=== PATIENT | female | born 1950 | race Caucasian/White ===

== ENCOUNTER 2019-08-23 10:01 | Outpatient (CLI) | payer MEDICARE, SELFPAY ==
[2019-08-23 10:18] LABS: Appearance Urine Clear (Clear); Bilirubin Urine Negative (Negative); Color Urine Yellow (Yellow); Glucose Urine UA Negative (Negative); Ketones Urine Negative (Negative); Leukocyte Esterase Ur 1+ (Negative); Nitrate Urine Negative (Negative); Protein Urine Negative (Negative); Specific Grav Ur <= 1.005 (1.010-1.020); Urobilinogen Urine 0.2 mg/dL (0.2-1.0); pH Urine 6.5 (5.0-8.0)
[2019-08-23 10:27] LABS: Add Urine Microscopic? YES; Bacteria Urine 2+ /hpf; Blood Urine Trace-Intact (Negative); RBC Urine 0-2 /hpf (0-2); Squamous Epithelial Cell Urine Few /hpf (Few); WBC Urine 16-20 /hpf (0-3)
== END 2019-08-23 10:02 | disposition home or self-care (01) ==
LOC: CHSLAB 10:04
PROVIDERS: PCP Internal Medicine; Visit Provider Internal Medicine
DX: R31.9 Hematuria, unspecified (principal)
CPT/HCPCS: 81001; 88108; 88175; G0145

== ENCOUNTER 2019-08-29 10:37 | Outpatient (CLI) | payer MEDICARE, SELFPAY ==
--- NOTE | ~2019-08-29 | MM_ITS ---
EXAMINATION: MM screening kassandra BI w [place] HISTORY: Screening mammogram TECHNIQUE: Craniocaudal and mediolateral oblique 3-D tomosynthesis images were obtained and synthetic 2-D images were generated. CAD analysis was submitted and interpreted. COMPARISON: 05/19/2018 bilateral digital screening mammogram 05/25/2016 diagnostic mammogram 05/07/2016 bilateral digital screening mammogram BREAST PARENCHYMAL COMPOSITION: The breasts are heterogeneously dense, which may obscure small masses . FINDINGS: There is a biopsy marker on the left; history of prior benign left breast biopsy. Occasiona l bilateral benign calcifications are noted. There is no evidence of suspicious mass, calcification, or architectural distortion to suggest malignancy in either breast. There has been no suspicious inte rval change. IMPRESSION: 1. No mammographic evidence of malignancy. 2. Recommend routine screening mammography in one year. BI-RADS Category 2: Benign finding(s). Reviewed, dictated and finalized at location A. PERSON
== END 2019-08-29 10:38 | disposition home or self-care (01) ==
LOC: CHSIMG 10:45
PROVIDERS: PCP Internal Medicine; Visit Provider Internal Medicine
DX: Z12.31 Encounter for screening mammogram for malignant neoplasm of breast (principal)
CPT/HCPCS: 77063; 77067

== ENCOUNTER 2019-08-30 09:59 | Outpatient (CLI) | payer MEDICARE, SELFPAY ==
[2019-08-30 10:11] LABS: Appearance Urine Clear (Clear); Bilirubin Urine Negative (Negative); Color Urine Yellow (Yellow); Glucose Urine UA Negative (Negative); Ketones Urine Negative (Negative); Leukocyte Esterase Ur Negative (Negative); Nitrate Urine Negative (Negative); Protein Urine Negative (Negative); Specific Grav Ur >= 1.030 (1.010-1.020); Urobilinogen Urine 0.2 mg/dL (0.2-1.0)
[2019-08-30 10:15] LABS: Add Urine Microscopic? YES; Blood Urine Trace-Intact (Negative); RBC Urine 0-2 /hpf (0-2); Squamous Epithelial Cell Urine Moderate /hpf (Few); WBC Urine 0-3 /hpf (0-3)
[2019-08-30 10:16] LABS: Bacteria Urine 1+ /hpf
== END 2019-08-30 10:00 | disposition home or self-care (01) ==
LOC: CHSLAB 10:01
PROVIDERS: PCP Internal Medicine; Visit Provider Internal Medicine
DX: N39.0 Urinary tract infection, site not specified (principal)
CPT/HCPCS: 81001; 87086; 87088

== ENCOUNTER 2020-02-23 11:06 | Outpatient (CLI) | payer MEDICARE, SELFPAY ==
[2020-02-23 11:24] LABS: Appearance Urine Clear (Clear); Bilirubin Urine Negative (Negative); Color Urine Yellow (Yellow); Glucose Urine UA Negative (Negative); Ketones Urine Negative (Negative); Leukocyte Esterase Ur Trace (Negative); Nitrate Urine Negative (Negative); Protein Urine Negative (Negative); Specific Grav Ur >= 1.030 (1.010-1.020); Urobilinogen Urine 0.2 mg/dL (0.2-1.0); pH Urine 5.5 (5.0-8.0)
[2020-02-23 11:28] LABS: Add Urine Microscopic? YES; Bacteria Urine 1+ /hpf; Blood Urine Trace-Intact (Negative); RBC Urine 0-2 /hpf (0-2); Transitional Epi Cells Urine Moderate /hpf
[2020-02-23 12:18] LABS: Hemoglobin A1C 6.1 % (<5.7)
[2020-02-23 12:25] LABS: Alanine Aminotransferase 17 U/L (14-59); Albumin Level 3.6 g/dL (3.4-5.0); Alkaline Phosphatase 86 U/L (46-116); Anion Gap 14.3 mmol/L (7-16); Aspartate Amino Transferase 18 U/L (15-37); Bilirubin,Total 0.6 mg/dL (0.00-1.00); Blood Urea Nitrogen 14 mg/dL (7-18); Calcium 9.4 mg/dL (8.5-10.1); Carbon Dioxide 27 mmol/L (21-32); Chloride 105 mmol/L (98-108); Cholesterol 181 mg/dL (0-200); Estimated Glomerular Filt Rate 49; Glucose 117 mg/dL (70-99); HDL Direct 56 mg/dL (40-60); LDL Cholesterol Calculated 99 mg/dL (<130); Osmolality Calculated 295 mOsm/kg (285-295); Potassium 4.3 mmol/L (3.5-5.1); Sodium 142 mmol/L (136-145); Triglycerides 129 mg/dL (0-150)
[2020-02-26 11:03] LABS: Vitamin D 25 Hydroxy 60 ng/mL (30-100)
== END 2020-02-23 11:07 | disposition home or self-care (01) ==
PROVIDERS: PCP Internal Medicine; Visit Provider Internal Medicine
DX: R73.01 Impaired fasting glucose (principal); I10 Essential (primary) hypertension; E78.2 Mixed hyperlipidemia; M81.0 Age-related osteoporosis without current pathological fracture
CPT/HCPCS: 36415; 80053; 80061; 81001; 82306; 83036

== ENCOUNTER 2020-05-04 10:56 | Outpatient (CLI) | payer MEDICARE, SELFPAY ==
[2020-05-04 12:04] LABS: Anion Gap 9 mmol/L (8-16); Blood Urea Nitrogen 9 mg/dL (7-18); Calcium 9.3 mg/dL (8.5-10.1); Carbon Dioxide 26 mmol/L (21-32); Chloride 106 mmol/L (98-108); Estimated Glomerular Filt Rate 58; Glucose 138 mg/dL (70-99); Osmolality Calculated 292 mOsm/kg (285-295); Potassium 4.1 mmol/L (3.5-5.1); Sodium 141 mmol/L (136-145)
== END 2020-05-04 10:57 | disposition home or self-care (01) ==
LOC: CHSLAB 10:58
PROVIDERS: PCP Internal Medicine; Visit Provider Internal Medicine
DX: E86.0 Dehydration (principal)
CPT/HCPCS: 36415; 80048

== ENCOUNTER 2020-09-24 10:38 | Outpatient (CLI) | payer MEDICARE, SELFPAY ==
[2020-09-24 11:02] LABS: Add Urine Microscopic? YES; Appearance Urine Sl Cloudy (Clear); Bilirubin Urine Negative (Negative); Blood Urine Negative (Negative); Color Urine Yellow (Yellow); Glucose Urine UA Negative (Negative); Ketones Urine Negative (Negative); Leukocyte Esterase Ur Negative (Negative); Nitrate Urine Negative (Negative); Protein Urine Negative (Negative); Urobilinogen Urine 0.2 mg/dL (0.2-1.0)
[2020-09-24 11:22] LABS: RBC Urine None seen /hpf (0-2); Squamous Epithelial Cell Urine Moderate /hpf (Few); WBC Urine 0-3 /hpf (0-3)
[2020-09-24 11:23] LABS: Bacteria Urine 2+ /hpf
[2020-09-24 11:24] LABS: Mucus Urine Moderate /lpf
[2020-09-24 11:31] LABS: Hemoglobin A1C 5.9 % (<5.7)
[2020-09-24 11:46] LABS: Alanine Aminotransferase 25 U/L (14-59); Albumin Level 3.8 g/dL (3.4-5.0); Alkaline Phosphatase 90 U/L (46-116); Anion Gap 9 mmol/L (8-16); Aspartate Amino Transferase 15 U/L (15-37); Bilirubin,Total 0.8 mg/dL (0.00-1.00); Blood Urea Nitrogen 15 mg/dL (7-18); Calcium 9.6 mg/dL (8.5-10.1); Carbon Dioxide 29 mmol/L (21-32); Chloride 103 mmol/L (98-108); Cholesterol 168 mg/dL (0-200); Creatine Kinase 55 U/L (26-192); Estimated Glomerular Filt Rate 51; Glucose 108 mg/dL (70-99); HDL Direct 56 mg/dL (40-60); LDL Cholesterol Calculated 82 mg/dL (<130); Osmolality Calculated 293 mOsm/kg (285-295); Potassium 4.5 mmol/L (3.5-5.1); Sodium 141 mmol/L (136-145); Total Protein 7.2 g/dL (6.4-8.2); Triglycerides 151 mg/dL (0-150)
[2020-09-27 12:34] LABS: Vitamin D 25 Hydroxy 74 ng/mL (30-100)
== END 2020-09-24 10:39 | disposition home or self-care (01) ==
LOC: CHSLAB 10:39
PROVIDERS: PCP Internal Medicine; Visit Provider Internal Medicine
DX: E78.2 Mixed hyperlipidemia (principal); I10 Essential (primary) hypertension; R73.01 Impaired fasting glucose; M81.0 Age-related osteoporosis without current pathological fracture
CPT/HCPCS: 36415; 80053; 80061; 81001; 82306; 82550; 83036

== ENCOUNTER 2020-10-22 10:37 | Outpatient (CLI) | payer MEDICARE, SELFPAY ==
--- NOTE | ~2020-10-22 | MM_ITS ---
EXAMINATION: MM screening kassandra BI w [place] HISTORY: Screening mammogram TECHNIQUE: Craniocaudal and mediolateral oblique 3-D tomosynthesis images were obtained and synthetic 2-D images were generated. CAD analysis was submitted and interpreted. COMPARISON: , 05/19/2018 bilateral digital screening mammogram examinations BREAST PARENCHYMAL COMPOSITION: The breasts are heterogeneously dense, which may obscure small masses . FINDINGS: Biopsy marker on the left; history of prior benign left breast biopsy 5 years ago. Occasional benign calcifications are noted bilaterally. There is no evidence of suspicious mass, calc ification, or architectural distortion to suggest malignancy in either breast. There has been no susp icious interval change. IMPRESSION: 1. No mammographic evidence of malignancy. 2. Recommend routine screening mammography in one year. BI-RADS Category 2: Benign finding(s). Reviewed, dictated and finalized at location A.
--- NOTE | ~2020-10-22 | DEXA_ITS ---
Bone Density Report Name: Noa Delatorre Age: 70 Sex: Female Ethnicity: White Date of : 1950 Indication: postmenopausal; screening for osteoporosis; height loss; Referring Provider: Luther Greenberg Study: Bone densitometry was performed. Exam Date: October 22, 2020 Accession number: [id number] Bone Density: Region BMD T-score Z-score Classification AP Spine(L1-L4) 1.057 0.1 2.2 Normal Femoral Neck (Left) 0.799 -0.5 1.3 Normal Total Hip (Left) 0.935 -0.1 1.5 Normal Femoral Neck (Right) 0.784 -0.6 1.2 Normal Total Hip (Right) 0.959 0.1 1.7 Normal Femoral Neck Mean 0.791 -0.5 1.3 Normal Total Hip Mean 0.947 0.0 1.6 Normal World Health Organization criteria for BMD impression classify patients as: Normal (T-score at or above -1.0), Osteopenia (T-score between -1.0 and -2.5), or Osteoporosis (T-score at or below -2.5). 10-year Fracture Risk: FRAX not reported because: All T-scores for Spine Total, Hip Total, Femoral Neck at or above -1.0 Clinical Information Provided by Patient: Smokes Has used the following medications: Vitamin D, BP meds, Cholest. meds Patient maximum height was 61 Menopause Age: 45 No regular weight bearing exercise Drinks caffeinated beverages Onset of menses at age 14 Number of children 3 Impression: The patient has normal bone mass. The patient has risk factors, including: smoking. Discussion: BONE DENSITY IS ABOVE THE MINIMUM DESIRABLE LEVEL AT ALL SKELETAL SITES TESTED. This patient?s bone mineral density is above the minimum desirable level (T-score -1.0 or better) at all sites measured. The patient should follow a healthful lifestyle (good nutrition with adequate calcium and vitamin D, and appropriate weight-bearing exercise). Follow-Up: Consider repeating this study in 5 years or sooner if there is some new clinical indication. Reported by: Dr. Cedric Robbins on 10/22/2020 11:16:00 AM. Reviewed, dictated and finalized at location ASophia [facility]ITAL[facility]ov[facility]
== END 2020-10-22 10:38 | disposition home or self-care (01) ==
LOC: CHSIMG 10:39
PROVIDERS: PCP Internal Medicine; Visit Provider Internal Medicine
DX: M81.0 Age-related osteoporosis without current pathological fracture (principal); Z12.31 Encounter for screening mammogram for malignant neoplasm of breast
CPT/HCPCS: 77063; 77067; 77080

== ENCOUNTER 2021-04-01 08:27 | Outpatient (CLI) | payer MEDICARE, SELFPAY ==
[2021-04-01 08:41] LABS: Add Urine Microscopic? YES; Appearance Urine Sl Cloudy (Clear); Bilirubin Urine 1+ (Negative); Blood Urine Negative (Negative); Color Urine Dark Yellow (Yellow); Glucose Urine UA Negative (Negative); Ketones Urine Trace (Negative); Leukocyte Esterase Ur Trace (Negative); Nitrate Urine Negative (Negative); Protein Urine Trace (Negative); RBC Urine None seen /hpf (0-2); Specific Grav Ur >= 1.030 (1.010-1.020); Squamous Epithelial Cell Urine Moderate /hpf (Few); WBC Urine 0-3 /hpf (0-3); pH Urine 5.5 (5.0-8.0)
[2021-04-01 08:42] LABS: Bacteria Urine 1+ /hpf
[2021-04-01 08:47] LABS: Hemoglobin A1C 5.7 % (<5.7)
[2021-04-01 09:52] LABS: Alanine Aminotransferase 22 U/L (14-59); Albumin Level 3.9 g/dL (3.4-5.0); Alkaline Phosphatase 95 U/L (46-116); Anion Gap 10 mmol/L (8-16); Aspartate Amino Transferase 17 U/L (15-37); Bilirubin,Total 0.5 mg/dL (0.00-1.00); Blood Urea Nitrogen 13 mg/dL (7-18); Calcium 9.6 mg/dL (8.5-10.1); Carbon Dioxide 29 mmol/L (21-32); Chloride 105 mmol/L (98-108); Cholesterol 148 mg/dL (0-200); Creatine Kinase 53 U/L (26-192); Estimated Glomerular Filt Rate 51; Glucose 103 mg/dL (70-99); HDL Direct 57 mg/dL (40-60); LDL Cholesterol Calculated 66 mg/dL (<130); Osmolality Calculated 298 mOsm/kg (285-295); Potassium 4.5 mmol/L (3.5-5.1); Sodium 144 mmol/L (136-145); Total Protein 7.1 g/dL (6.4-8.2); Triglycerides 126 mg/dL (0-150)
[2021-04-04 13:25] LABS: Vitamin D 25 Hydroxy 58 ng/mL (30-100)
== END 2021-04-01 08:28 | disposition home or self-care (01) ==
LOC: CHSLAB 08:29
PROVIDERS: PCP Internal Medicine; Visit Provider Internal Medicine
DX: E78.2 Mixed hyperlipidemia (principal); I10 Essential (primary) hypertension; E11.9 Type 2 diabetes mellitus without complications; M81.0 Age-related osteoporosis without current pathological fracture
CPT/HCPCS: 36415; 80053; 80061; 81001; 82306; 82550; 83036

== ENCOUNTER 2022-04-25 09:46 | Outpatient (CLI) | payer MEDICARE, SELFPAY ==
[2022-04-25 10:12] LABS: Appearance Urine Clear (Clear); Bilirubin Urine Negative (Negative); Glucose Urine UA Negative (Negative); Ketones Urine Negative (Negative); Leukocyte Esterase Ur Negative (Negative); Nitrate Urine Negative (Negative); Protein Urine Negative (Negative); Specific Grav Ur 1.025 (1.010-1.020); Urobilinogen Urine 0.2 mg/dL (0.2-1.0)
[2022-04-25 10:19] LABS: Add Urine Microscopic? YES; Blood Urine Trace-lysed (Negative); Color Urine Light Yellow (Yellow); RBC Urine None seen /hpf (0-2)
[2022-04-25 10:20] LABS: Bacteria Urine Trace /hpf; Squamous Epithelial Cell Urine Few /hpf (Few); WBC Urine None seen /hpf (0-3)
[2022-04-25 10:32] LABS: Hemoglobin A1C 5.5 % (<5.7)
[2022-04-25 10:40] LABS: Alanine Aminotransferase 14 U/L (14-59); Albumin Level 3.7 g/dL (3.4-5.0); Alkaline Phosphatase 89 U/L (46-116); Anion Gap 6 mmol/L (8-16); Aspartate Amino Transferase 14 U/L (15-37); Bilirubin,Total 0.6 mg/dL (0.00-1.00); Blood Urea Nitrogen 18 mg/dL (7-18); Calcium 9.1 mg/dL (8.5-10.1); Carbon Dioxide 28 mmol/L (21-32); Chloride 107 mmol/L (98-108); Cholesterol 167 mg/dL (0-200); Creatine Kinase 47 U/L (26-192); Estimated Glomerular Filt Rate > 60; Glucose 96 mg/dL (70-99); HDL Direct 63 mg/dL (40-60); LDL Cholesterol Calculated 84 mg/dL (<130); Osmolality Calculated 293 mOsm/kg (285-295); Potassium 4.5 mmol/L (3.5-5.1); Sodium 141 mmol/L (136-145); Triglycerides 101 mg/dL (0-150)
[2022-04-29 12:22] LABS: Vitamin D 25 Hydroxy 39 ng/mL (30-100)
== END 2022-04-25 09:47 | disposition home or self-care (01) ==
LOC: CHSLAB 09:48
PROVIDERS: PCP Internal Medicine; Visit Provider Internal Medicine
DX: E78.2 Mixed hyperlipidemia (principal); I10 Essential (primary) hypertension; R73.01 Impaired fasting glucose; M81.0 Age-related osteoporosis without current pathological fracture
CPT/HCPCS: 36415; 80053; 80061; 81001; 82306; 82550; 83036

== ENCOUNTER 2022-05-29 07:51 | Outpatient (CLI) | payer MEDICARE, SELFPAY ==
--- NOTE | ~2022-05-29 | MM_ITS ---
EXAMINATION: MM screening kassandra BI w [place] HISTORY: Screening mammogram TECHNIQUE: Craniocaudal and mediolateral oblique 3-D tomosynthesis images were obtained and synthetic 2-D images were generated. CAD analysis was submitted and interpreted. COMPARISON: 10/22/2020, 08/29/2019, 05/19/2018 bilateral screening mammogram examinations BREAST PARENCHYMAL COMPOSITION: The breasts are heterogeneously dense, which may obscure small masses . FINDINGS: There is a biopsy marker in the left. History of prior benign left breast biopsy. Occasional scattered bilateral benign calcifications. There is no evidence of suspicious mass, calcif ication, or architectural distortion to suggest malignancy in either breast. There has been no suspic ious interval change. IMPRESSION: 1. No mammographic evidence of malignancy. 2. Recommend routine screening mammography in one year. BI-RADS Category 2: Benign finding(s). Reviewed, dictated and finalized at location A. E UNION SECRETARY
--- NOTE | ~2022-05-29 | CT_ITS ---
EXAMINATION: CT lung screening DATE: 05/29/2022 08:11 INDICATION: Personal history of nicotine dependence, current smoker with 53 pack year history TECHNIQUE: Computed tomography (CT) of the chest was performed without intravenous contrast. The dose -length product (DLP) was 56.45 mGy-cm. Automated exposure control and iterative reconstruction techn Hoardue were employed. COMPARISON: None FINDINGS: There is mild emphysema. No pleural effusion or pneumothorax. No suspicious pulmonary nodul es are identified. No pathologically enlarged thoracic lymph nodes are identified. The heart size is normal. The lungs are free of acute opacities. Calcified pulmonary nodules and calcified left hilar a nd mediastinal lymph nodes are consistent with old granulomatous disease. There is severe thoracic sp ondylosis. The gallbladder is surgically absent. IMPRESSION: 1. Lung-RADS category 1: Negative. Continue annual screening with noncontrast low-dose chest CT in 12 months. Reviewed, dictated and finalized at location B. CLE MONITOR TECHNICIAN IMPRESSION: 1. Lung-RADS category 1: Negative. Continue annual screening with noncontrast l ow-dose chest CT in 12 months.
== END 2022-05-29 07:52 | disposition home or self-care (01) ==
LOC: CHSIMG 07:52
PROVIDERS: PCP Internal Medicine; Visit Provider Internal Medicine
DX: Z12.2 Encounter for screening for malignant neoplasm of respiratory organs (principal); Z87.891 Personal history of nicotine dependence; Z12.31 Encounter for screening mammogram for malignant neoplasm of breast
CPT/HCPCS: 71271; 77063; 77067

== ENCOUNTER 2022-11-16 09:05 | Outpatient (CLI) | payer MEDICARE, SELFPAY ==
[2022-11-16 09:31] LABS: Hemoglobin A1C 5.9 % (<5.7)
[2022-11-16 09:53] LABS: Appearance Urine Clear (Clear); Bilirubin Urine Negative (Negative); Blood Urine Negative (Negative); Color Urine Yellow (Yellow); Glucose Urine UA Negative (Negative); Ketones Urine Negative (Negative); Leukocyte Esterase Ur Negative (Negative); Nitrate Urine Negative (Negative); Protein Urine Negative (Negative); Specific Grav Ur 1.025 (1.010-1.020); Urobilinogen Urine 0.2 mg/dL (0.2-1.0); pH Urine 5.5 (5.0-8.0)
[2022-11-16 09:59] LABS: Add Urine Microscopic? NO
[2022-11-16 10:22] LABS: Creatinine Urine 208.42 mg/dL (40-278); MALB Creatinine Ratio 7.5 mg/g (0-30); Microalbumin Urine Random 15.7 mg/L
[2022-11-16 10:28] LABS: Alanine Aminotransferase 22 U/L (14-59); Albumin Level 3.5 g/dL (3.4-5.0); Alkaline Phosphatase 110 U/L (46-116); Anion Gap 8 mmol/L (8-16); Aspartate Amino Transferase 19 U/L (15-37); Bilirubin,Total 0.5 mg/dL (0.00-1.00); Blood Urea Nitrogen 16 mg/dL (7-18); Carbon Dioxide 29 mmol/L (21-32); Chloride 105 mmol/L (98-108); Cholesterol 184 mg/dL (0-200); Creatine Kinase 76 U/L (26-192); Estimated Glomerular Filt Rate 56; Glucose 118 mg/dL (70-99); HDL Direct 61 mg/dL (40-60); LDL Cholesterol Calculated 101 mg/dL (<130); Osmolality Calculated 296 mOsm/kg (285-295); Potassium 4.6 mmol/L (3.5-5.1); Sodium 142 mmol/L (136-145); Total Protein 7.1 g/dL (6.4-8.2); Triglycerides 112 mg/dL (0-150)
== END 2022-11-16 09:06 | disposition home or self-care (01) ==
PROVIDERS: PCP Internal Medicine; Visit Provider Internal Medicine
DX: I10 Essential (primary) hypertension (principal); E78.2 Mixed hyperlipidemia; E11.9 Type 2 diabetes mellitus without complications
CPT/HCPCS: 36415; 80053; 80061; 81003; 82043; 82550; 83036

== ENCOUNTER 2023-05-17 09:46 | Outpatient (CLI) | payer MEDICARE, SELFPAY ==
[2023-05-17 10:01] LABS: Basophils Absolute Auto 0.08 K/mm3 (0.00-0.10); Basophils Percent Auto 1.4 % (0.0-1.0); Eosinophils Absolute Auto 0.11 K/mm3 (0.02-0.50); Eosinophils Percent Auto 1.9 % (1.0-6.0); Hematocrit 43.9 % (35.0-42.0); Hemoglobin 14.3 g/dL (11.7-13.8); Immature Granulocyte Absolute 0.02 K/mm3 (0.00-0.00); Immature Granulocyte Percent A 0.4 % (0.0-0.0); Lymphocytes Absolute Auto 0.98 K/mm3 (1.10-4.50); Lymphocytes Percent Auto 17.2 % (18.0-42.0); Mean Corpuscular HGB Conc 32.6 g/dL (32.0-36.0); Mean Corpuscular Volume 92.2 fL (78.0-102.0); Mean Platelet Volume 9.5 fl (9.2-11.8); Monocytes Absolute Auto 0.58 K/mm3 (0.10-0.90); Monocytes Percent Auto 10.2 % (2.0-11.0); Neutrophils Absolute Auto 3.9 K/mm3 (1.7-7.2); Neutrophils Percent Auto 68.9 % (50.0-70.0); Platelet Count Result 231 K/mm3 (150-420); Red Blood Count 4.76 M/mm3 (4.20-5.40); Red Cell Distribution Width 13.1 % (11.6-14.4); White Blood Count 5.7 K/mm3 (4.8-10.8)
[2023-05-17 10:02] LABS: Appearance Urine Clear (Clear); Bilirubin Urine Negative (Negative); Blood Urine Negative (Negative); Color Urine Yellow (Yellow); Glucose Urine UA Negative (Negative); Ketones Urine Negative (Negative); Leukocyte Esterase Ur Negative LEU/UL (Negative); Nitrate Urine Negative (Negative); Protein Urine Negative (Negative); Specific Grav Ur >= 1.030 (1.010-1.020); Urobilinogen Urine 0.2 mg/dL (0.2-1.0)
[2023-05-17 10:06] LABS: Add Urine Microscopic? NO
[2023-05-17 10:50] LABS: Alanine Aminotransferase 15 U/L (14-59); Albumin Level 3.4 g/dL (3.4-5.0); Alkaline Phosphatase 92 U/L (46-116); Anion Gap 8 mmol/L (8-16); Aspartate Amino Transferase 17 U/L (15-37); Bilirubin,Total 0.6 mg/dL (0.00-1.00); Blood Urea Nitrogen 15 mg/dL (7-18); Calcium 9.4 mg/dL (8.5-10.1); Carbon Dioxide 30 mmol/L (21-32); Chloride 106 mmol/L (98-108); Cholesterol 141 mg/dL (0-200); Creatine Kinase 60 U/L (26-192); Estimated Glomerular Filt Rate > 60; Glucose 102 mg/dL (70-99); HDL Direct 57 mg/dL (40-60); LDL Cholesterol Calculated 72 mg/dL (<130); Osmolality Calculated 298 mOsm/kg (285-295); Potassium 4.6 mmol/L (3.5-5.1); Sodium 144 mmol/L (136-145); Total Protein 6.7 g/dL (6.4-8.2); Triglycerides 58 mg/dL (0-150)
[2023-05-18 13:45] LABS: Creatinine Urine 161.51 mg/dL (40-278); MALB Creatinine Ratio 8.2 mg/g (0-30); Microalbumin Urine Random 13.4 mg/L
[2023-05-19 18:23] LABS: Vitamin D 25 Hydroxy 29 ng/mL (30-100)
== END 2023-05-17 09:47 | disposition home or self-care (01) ==
LOC: CHSLAB 09:49
PROVIDERS: PCP Internal Medicine; Visit Provider Internal Medicine
DX: N39.0 Urinary tract infection, site not specified (principal); E78.2 Mixed hyperlipidemia; I10 Essential (primary) hypertension; E11.9 Type 2 diabetes mellitus without complications; E55.9 Vitamin D deficiency, unspecified
CPT/HCPCS: 36415; 80053; 80061; 81003; 82043; 82306; 82550; 83036; 85025

== ENCOUNTER 2023-06-01 08:32 | Outpatient (CLI) | payer MEDICARE, SELFPAY ==
--- NOTE | ~2023-06-01 | MM_ITS ---
EXAMINATION: MM screening kassandra BI w [place] HISTORY: Screening mammogram TECHNIQUE: Craniocaudal and mediolateral oblique 3-D tomosynthesis images were obtained and synthetic 2-D images were generated. CAD analysis was submitted and interpreted. COMPARISON: 05/29/2022, 10/22/2020, 08/29/2019 BREAST PARENCHYMAL COMPOSITION:The breasts are extremely dense, which lowers the sensitivity of mammo graphy. FINDINGS: Stable left breast calcifications. No suspicious mass, calcification, or architectural dist ortion are identified in either breast to suggest malignancy. There has been no suspicious interval c hange. IMPRESSION: No mammographic evidence of malignancy. Recommend routine screening mammography in one year. BI-RADS Category 2: Benign finding(s). Reviewed, dictated and finalized at location . OMER CARE REPRESENTATIVE
== END 2023-06-01 08:33 | disposition home or self-care (01) ==
LOC: CHSIMG 08:33
PROVIDERS: PCP Internal Medicine; Visit Provider Internal Medicine
DX: Z12.31 Encounter for screening mammogram for malignant neoplasm of breast (principal)
CPT/HCPCS: 77063; 77067

== ENCOUNTER 2023-11-29 09:28 | Outpatient (CLI) | payer MEDICARE, SELFPAY ==
[2023-11-29 10:02] LABS: Appearance Urine Clear (Clear); Bilirubin Urine Negative (Negative); Blood Urine Trace-intact (Negative); Color Urine Yellow (Yellow); Glucose Urine UA Negative (Negative); Ketones Urine Negative (Negative); Leukocyte Esterase Ur Negative (Negative); Nitrate Urine Negative (Negative); Protein Urine Negative (Negative); Specific Grav Ur 1.025 (1.010-1.020); Urobilinogen Urine 0.2 mg/dL (0.2-1.0)
[2023-11-29 10:16] LABS: Basophils Absolute Auto 0.07 K/mm3 (0.00-0.10); Basophils Percent Auto 1.1 % (0.0-1.0); Eosinophils Absolute Auto 0.16 K/mm3 (0.02-0.50); Eosinophils Percent Auto 2.5 % (1.0-6.0); Hematocrit 44.5 % (35.0-42.0); Hemoglobin 14.4 g/dL (11.7-13.8); Immature Granulocyte Absolute 0.03 K/mm3 (0.00-0.00); Immature Granulocyte Percent A 0.5 % (0.0-0.0); Lymphocytes Absolute Auto 0.89 K/mm3 (1.10-4.50); Mean Corpuscular HGB Conc 32.4 g/dL (32-36); Mean Corpuscular Hemoglobin 29.8 pg (27.0-31.0); Mean Corpuscular Volume 91.9 fL (78.0-102.0); Mean Platelet Volume 9.9 fl (9.2-11.8); Monocytes Absolute Auto 0.52 K/mm3 (0.10-0.90); Monocytes Percent Auto 8.2 % (2.0-11.0); Neutrophils Absolute Auto 4.69 K/mm3 (1.70-7.20); Neutrophils Percent Auto 73.7 % (50.0-70.0); Platelet Count Result 201 K/mm3 (150-420); Red Blood Count 4.84 M/mm3 (4.20-5.40); Red Cell Distribution Width 13.1 % (11.6-14.4); White Blood Count 6.4 K/mm3 (4.8-10.8)
[2023-11-29 10:20] LABS: Add Urine Microscopic? YES; Bacteria Urine 2+ /hpf; RBC Urine 0-2 /hpf (0-2); Squamous Epithelial Cell Urine Moderate /hpf (Few); WBC Urine 0-3 /hpf (0-3)
[2023-11-29 11:02] LABS: Hemoglobin A1C 5.7 % (<5.7)
[2023-11-29 12:16] LABS: Alanine Aminotransferase 17 U/L (14-59); Albumin Level 3.3 g/dL (3.4-5.0); Alkaline Phosphatase 77 U/L (46-116); Anion Gap 12 mmol/L (4-12); Aspartate Amino Transferase 18 U/L (15-37); Bilirubin,Total 0.5 mg/dL (0.00-1.00); Blood Urea Nitrogen 18 mg/dL (7-18); Calcium 8.6 mg/dL (8.5-10.1); Carbon Dioxide 25 mmol/L (21-32); Chloride 105 mmol/L (98-108); Cholesterol 160 mg/dL (0-200); Creatine Kinase 70 U/L (26-192); Estimated Glomerular Filt Rate > 60; Glucose 120 mg/dL (70-99); HDL Direct 66 mg/dL (40-60); LDL Cholesterol Calculated 80 mg/dL (<130); Osmolality Calculated 296 mOsm/kg (285-295); Potassium 4.6 mmol/L (3.5-5.1); Sodium 142 mmol/L (136-145); Total Protein 6.8 g/dL (6.4-8.2); Triglycerides 68 mg/dL (0-150)
== END 2023-11-29 09:29 | disposition home or self-care (01) ==
LOC: CHSLAB 09:30
PROVIDERS: PCP Internal Medicine; Visit Provider Internal Medicine
DX: E78.2 Mixed hyperlipidemia (principal); I10 Essential (primary) hypertension; R73.01 Impaired fasting glucose
CPT/HCPCS: 36415; 80053; 80061; 81001; 82550; 83036; 85025

== ENCOUNTER 2024-05-30 09:46 | Outpatient (CLI) | payer MEDICARE, SELFPAY ==
[2024-05-30 10:13] LABS: Add Urine Microscopic? YES; Appearance Urine Clear (Clear); Bilirubin Urine 1+ (Negative); Blood Urine Negative (Negative); Color Urine Yellow (Yellow); Glucose Urine UA Negative (Negative); Ketones Urine 1+ (Negative); Leukocyte Esterase Ur Trace (Negative); Nitrate Urine Negative (Negative); Protein Urine 1+ (Negative); pH Urine 6.5 (5.0-8.0)
[2024-05-30 10:22] LABS: Bacteria Urine 3+ /hpf; RBC Urine 0-2 /hpf (0-2); Squamous Epithelial Cell Urine Many /hpf (Few); WBC Urine 0-5 /hpf (0-3)
[2024-05-30 11:16] LABS: Hemoglobin A1C 5.7 % (<5.7)
[2024-05-30 11:26] LABS: Alanine Aminotransferase 16 U/L (14-59); Albumin Level 3.6 g/dL (3.4-5.0); Alkaline Phosphatase 103 U/L (46-116); Anion Gap 11 mmol/L (4-12); Aspartate Amino Transferase 12 U/L (15-37); Bilirubin,Total 0.8 mg/dL (0.00-1.00); Blood Urea Nitrogen 15 mg/dL (7-18); Calcium 9.8 mg/dL (8.5-10.1); Carbon Dioxide 26 mmol/L (21-32); Chloride 104 mmol/L (98-108); Cholesterol 184 mg/dL (0-200); Creatine Kinase 59 U/L (26-192); Estimated Glomerular Filt Rate 50; Glucose 108 mg/dL (70-99); HDL Direct 62 mg/dL (40-60); LDL Cholesterol Calculated 98 mg/dL (<130); Osmolality Calculated 293 mOsm/kg (285-295); Potassium 5.1 mmol/L (3.5-5.1); Sodium 141 mmol/L (136-145); Total Protein 7.5 g/dL (6.4-8.2); Triglycerides 118 mg/dL (0-150)
== END 2024-05-30 09:47 | disposition home or self-care (01) ==
LOC: CHSLAB 09:51
PROVIDERS: PCP Internal Medicine; Visit Provider Internal Medicine
DX: E78.2 Mixed hyperlipidemia (principal); I10 Essential (primary) hypertension; R73.01 Impaired fasting glucose
CPT/HCPCS: 36415; 80053; 80061; 81001; 82550; 83036

== ENCOUNTER 2024-07-18 13:25 | Outpatient (CLI) | payer MEDICARE, SELFPAY ==
--- NOTE | ~2024-07-18 | MM_ITS ---
EXAMINATION: MM screening kassandra BI w [place] HISTORY: Screening mammogram, family history of breast cancer in her mother and sister. TECHNIQUE: Craniocaudal and mediolateral oblique 3-D tomosynthesis images were obtained and synthetic 2-D images were generated. CAD analysis was submitted and interpreted. COMPARISON: 06/01/2023, 05/29/2022, 10/22/2020 BREAST PARENCHYMAL COMPOSITION:Dense: The breasts are extremely dense, which lowers the sensitivity o f mammography. FINDINGS: No suspicious mass, calcification, or architectural distortion are identified in either ashley ast to suggest malignancy. There has been no suspicious interval change. IMPRESSION: No mammographic evidence of malignancy. Recommend routine screening mammography in one year. BI-RADS Category 1: Negative Reviewed, dictated and finalized at location . LABORER
== END 2024-07-18 13:26 | disposition home or self-care (01) ==
LOC: CHSIMG 13:27
PROVIDERS: PCP Internal Medicine; Visit Provider Internal Medicine
DX: Z12.31 Encounter for screening mammogram for malignant neoplasm of breast (principal)
CPT/HCPCS: 77063; 77067

== ENCOUNTER 2024-07-26 11:42 | Outpatient (CLI) | payer MEDICARE, SELFPAY ==
--- NOTE | ~2024-07-26 | DEXA_ITS ---
? Bone Density Report? Name:? JULISSA SCHWARTZ Patient ID:??? [id number] Age:? 73 Sex:? Female Ethnicity:? White Date of : 1950 Indication: postmenopausal; screening for osteoporosis; height loss; Referring Provider: Luther Greenberg Study: Bone densitometry was performed. Exam Date: July 26, 2024 Accession number: [id number] Bone Density: Region?BMD??? T-score? Z-score?? Classification AP Spine(L1-L4)? 1.106??? 0.5?2.9? Normal Femoral Neck (Left)? 0.766?? -0.7? 1.3? Normal Total Hip (Left)? 0.932?? -0.1? 1.6? Normal Femoral Neck (Right)? 0.799?? -0.4? 1.6? Normal Total Hip (Right)? 0.989??? 0.4? 2.1? Normal Femoral Neck Mean? 0.783?? -0.6? 1.4? Normal Total Hip Mean? 0.961??? 0.2? 1.9? Normal World Health Organization criteria for BMD impression classify patients as: Normal (T-score at or above -1.0), Osteopenia (T-score between -1.0 and -2.5), or Osteoporosis (T-score at or below -2.5). 10-year Fracture Risk: FRAX not reported because: ? All T-scores for Spine Total, Hip Total, Femoral Neck at or above -1.0 Previous Exams: Region? Exam? Age? BMD?? T-score? BMD Change? BMD Change ? Date? g/cm2? vs Baseline??? vs Previous AP Spine (L1-L4) ? 07/26/2024? 73? 1.106? 0.5? 0.049 (4.7%)*? 0.049 (4.7%)* ? 10/22/2020? 70? 1.057? 0.1? Total Hip(Left) ? 07/26/2024? 73? 0.932??? -0.1? -0.003 (-0.3%) -0.003 (-0.3%) ? 10/22/2020? 70? 0.935??? -0.1? Total Hip(Right) ? 07/26/2024? 73? 0.989? 0.4? 0.030 (3.1%)*? 0.030 (3.1%)* ? 10/22/2020? 70? 0.959? 0.1? *Denotes significance at 95% confidence level, LSC for AP Spine = 0.022 g/cm2,? LSC for Total Hip = 0.027 g/cm2?? Clinical Information Provided by Patient: Smokes Has used the following medications: Vitamin D Patient maximum height was 62 Menopause Age: 45 Onset of menses at age 15 Number of children 3 Impression: The patient has normal bone mass. The patient has risk factors, including: smoking. No significant bone loss was observed. Discussion: BONE DENSITY IS ABOVE THE MINIMUM DESIRABLE LEVEL AT ALL SKELETAL SITES TESTED. This patient?s bone mineral density is above the minimum desirable level (T- score -1.0 or better) at all sites measured. The patient should follow a healthful lifestyle (good nutrition with adequate calcium and vitamin D, and appropriate weight-bearing exercise). Follow-Up: Consider repeating this study in 5 years or sooner if there is some new clinical indication. Reported by: OLEG on 07/31/2024 12:32:00 PM. DEMARCO
--- NOTE | ~2024-07-26 | CT_ITS ---
CT Scan of the Chest without Contrast: Clinical Indication: Lung cancer screening, nicotine dependence Technique: Contiguous sections were acquired throughout the chest without intravenous contrast. Dose reduction technique was used on this scan by utilizing automated exposure control and iterative recon struction technique. The dose-length product (DLP) was 59.54 mGy-cm. Findings: There is no evidence of any significant mediastinal, hilar or axillary lymphadenopathy. Small calcifi ed left hilar lymph nodes are present. Coronary artery calcifications are present. There is no evidence of pleural or pericardial effusion. There is a 6 mm right upper lobe groundglass nodule (axial image 45). There is additional peripheral 9 mm groundglass nodule noted (axial image 51). There is additional 5 mm groundglass nodule in the ri ght middle lobe (axial image 61). Subtle 4 mm groundglass nodule noted in the lingula (axial image 71 ). Images through the upper abdomen reveal no abnormalities. Impression: Lung as 2: Benign appearance. Follow-up screening CT advised. Several small groundglass nodules, suggestive of focal pneumonitis. Reviewed, dictated and finalized at location M. OLEUM GEOLOGY FACULTY MEMBER Impression: Lung as 2: Benign appearance. Follow-up screening CT advised. Several small groundglass nodules, suggestive of focal pneumonitis.
== END 2024-07-26 11:43 | disposition home or self-care (01) ==
PROVIDERS: PCP Internal Medicine; Visit Provider Internal Medicine
DX: Z12.2 Encounter for screening for malignant neoplasm of respiratory organs (principal); Z87.891 Personal history of nicotine dependence; Z78.0 Asymptomatic menopausal state; R91.8 Other nonspecific abnormal finding of lung field
CPT/HCPCS: 71271; 77080

== ENCOUNTER 2024-07-28 10:39 | Outpatient (CLI) | payer MEDICARE, SELFPAY ==
[2024-07-28 11:00] LABS: Basophils Absolute Auto 0.08 K/mm3 (0.00-0.10); Basophils Percent Auto 0.9 % (0.0-1.0); Eosinophils Absolute Auto 0.15 K/mm3 (0.02-0.50); Eosinophils Percent Auto 1.7 % (1.0-6.0); Hematocrit 43.6 % (35.0-42.0); Hemoglobin 13.9 g/dL (11.7-13.8); Immature Granulocyte Absolute 0.07 K/mm3 (0.00-0.00); Immature Granulocyte Percent A 0.8 % (0.0-0.0); Lymphocytes Absolute Auto 1.17 K/mm3 (1.10-4.50); Mean Corpuscular HGB Conc 31.9 g/dL (32-36); Mean Corpuscular Hemoglobin 29.3 pg (27.0-31.0); Mean Corpuscular Volume 91.8 fL (78.0-102.0); Mean Platelet Volume 9.4 fl (9.2-11.8); Monocytes Absolute Auto 0.68 K/mm3 (0.10-0.90); Monocytes Percent Auto 7.5 % (2.0-11.0); Neutrophils Absolute Auto 6.88 K/mm3 (1.70-7.20); Neutrophils Percent Auto 76.1 % (50.0-70.0); Platelet Count Result 256 K/mm3 (150-420); Red Blood Count 4.75 M/mm3 (4.20-5.40); Red Cell Distribution Width 13.2 % (11.6-14.4)
[2024-07-28 11:43] LABS: SARS-CoV-2 RNA PCR Negative (Negative)
[2024-07-28 11:47] LABS: Influenza A QL RT-PCR Negative (Negative); Influenza B QL RT-PCR Negative (Negative); RSV RNA, RT-PCR Negative (Negative)
== END 2024-07-28 10:40 | disposition home or self-care (01) ==
PROVIDERS: PCP Internal Medicine; Visit Provider Internal Medicine
DX: R05.9 Cough, unspecified (principal); R91.8 Other nonspecific abnormal finding of lung field
CPT/HCPCS: 36415; 82785; 85025; 87637

== ENCOUNTER 2025-03-28 09:42 | Outpatient (CLI) | payer MEDICARE, SELFPAY ==
--- NOTE | ~2025-03-28 | XR_ITS ---
EXAMINATION: XR chest 2V, 03/28/2025 10:00 CDT HISTORY: PANLOBUAR EMPHYSEMA COMPARISON: No comparisons available. Technique: 2 views obtained. Findings: The lungs are clear, no effusion. No pneumothorax. Heart is normal size. Mediastinal and hilar contours are within normal limits. Bony thorax no acute abnormality. Impression: No acute cardiopulmonary abnormality. Reviewed, dictated and finalized at location A. Impression: No acute cardiopulmonary abnormality.
[2025-03-28 10:00] LABS: Hematocrit 43.7 % (35.0-42.0); Hemoglobin 14.0 g/dL (11.7-13.8); Mean Corpuscular HGB Conc 32.0 g/dL (32-36); Mean Corpuscular Hemoglobin 29.6 pg (27.0-31.0); Mean Corpuscular Volume 92.4 fL (78.0-102.0); Platelet Count Result 199 K/mm3 (150-420); Red Blood Count 4.73 M/mm3 (4.20-5.40); White Blood Count 6.8 K/mm3 (4.8-10.8)
[2025-03-28 10:01] LABS: Add Urine Microscopic? YES; Appearance Urine Clear (Clear); Glucose Urine UA Negative (Negative); Leukocyte Esterase Ur Negative (Negative); Nitrate Urine Negative (Negative); Specific Grav Ur 1.025 (1.010-1.020)
[2025-03-28 10:21] LABS: Alanine Aminotransferase 14 U/L (6-35); Albumin Level 4.2 g/dL (3.5-5.1); Alkaline Phosphatase 77 U/L (38-126); Anion Gap 8 mmol/L (4-12); Aspartate Amino Transferase 27 U/L (14-36); Bilirubin,Total 0.9 mg/dL (0.2-1.3); Blood Urea Nitrogen 17 mg/dL (7-17); Calcium 10.0 mg/dL (8.4-10.2); Carbon Dioxide 27 mmol/L (22-30); Chloride 107 mmol/L (98-107); Cholesterol 154 mg/dL (0-200); Creatine Kinase 50 U/L (30-135); Estimated Glomerular Filt Rate 57; Glucose 111 mg/dL (65-110); HDL Direct 70 mg/dL; Osmolality Calculated 296 mOsm/kg (285-295); Potassium 5.1 mmol/L (3.4-5.0); Sodium 142 mmol/L (137-145); Total Protein 6.9 g/dL (6.3-8.2); Triglycerides 88 mg/dL (<150)
[2025-03-28 10:23] LABS: Hemoglobin A1C 5.9 % (<5.7)
--- OUTSIDE RECORDS SUMMARY | 2025-03-28 10:34 | XMS_ITS | Clinical Summary ---
Author Organization [facility] Address [address] [place] [address] Care Team Providers Care Installer Inspector Final Name Role Phone Luther Greenberg MD Primary Care Provider Allergies Active Allergy Reactions Criticality Noted Date Comments Latex Rash Low 01/31/2025 Penicillins Unknown 02/28/2025 Medications simvastatin (ZOCOR) 10 MG tablet Take 1 tablet (10 mg total) by mouth nightly at bedtime. Active losartan (COZAAR) 100 MG tablet Take 1 tablet (100 mg total) by mouth daily. Active atenolol (TENORMIN) 50 MG tablet Take 1 tablet (50 mg total) by mouth daily. Active Active Problems No known active problems Encounters Date Type Department Care Team Description 03/07/2025 12:15 PM CDT [place]esthesia [place] [id number] Jerson Benito CRNA 03/07/2025 11:33 AM CDT - 03/07/2025 12:00 PM [place] [id number] Josefina Bowles MD extraction cataract LEFT eye with lens implant 03/07/2025 10:38 AM CDT - 03/07/2025 1:01 PM CDT [place] [address] Josefina Bowles MD Discharge Disposition: Home or Self Care (Routine Discharge) 03/07/2025 Travel 02/28/2025 Travel 01/31/2025 9:00 AM CD[place] [address] Neal Marlow MD Durbin Teresaadrián Bailey CRNA 01/31/2025 8:54 AM CDT - 01/31/2025 9:22 AM CDT Surgery [facility] [address] [place] [address] [place] [address] Josefina Bowles MD extraction cataract RIGHT eye with intraocular lens implantation 01/31/2025 8:04 AM CDT - 01/31/2025 9:41 AM CDT Hospital Encounter [facility] [address] [place] [address] [place] [address] Josefina Bowles MD Discharge Disposition: Home or Self Care (Routine Discharge) 01/31/2025 Travel 01/26/2025 Travel from Last 3 Months Social History Tobacco Use Types Packs/Day Years Used Date Smoking Tobacco: Former Cigarettes Smokeless Tobacco: Never Alcohol Use Standard Drinks/Week Comments Not Currently 0 (1 standard drink = 0.6 oz pur e alcohol) Comments No Sex and Gender Information Value Date Recorded Sex Assigned at Female 01/31/2025 7:54 AM CDT Legal Sex Female 8:23 AM CDT Gender Identity Not on file Sexual Orientation Not on file Last Filed Vital Signs Vital Sign Reading Time Taken Comments Blood Pressure 168/77 03/07/2025 12:35 PM CDT Pulse 95 03/07/2025 12:35 PM CDT Temperature 36.4 C (97.6 F) 03/07/2025 12:35 PM CDT Respiratory Rate 16 03/07/2025 12:35 PM CDT Oxygen Saturation 97% 03/07/2025 12:35 PM CDT Inhaled Oxygen Concentration - - Weight 56.7 kg (125 lb) 02/28/2025 11:30 AM CDT Height 154.9 cm (5' 1) 02/28/2025 11:30 AM CDT Body Mass Index 23.62 02/28/2025 11:30 AM CDT Plan of Treatment Health Maintenance Due Date Last Done Comments Colorectal Cancer Screening Colonoscopy (10 Years) 1950 Hepatitis C 1968 Mammogram Screening 1990 Annual Medicare Wellness Visit 2015 Dexa Scan (General) 2015 COVID-19 Vaccine (1 - 2024-2 5 season) 2025 RSV Immunization or 60+ Years (1 - 1-dose 75+ series) 2025 DTaP, Tdap and Td Vaccines ( 2 - Td or Tdap) 05/17/2031 05/17/2021 Pneumococcal Vaccine: 50+ Years Completed 07/29/2016, 12/06/2015 Zoster Vaccines Completed 06/17/2023, 11/27/2022, 02/06/2013 Meningococcal B Vaccine Aged Out No l onger eligible based on patient's age to complete this topic Meningococcal Vaccine Aged Out No edwina aminata eligible based on patient's age to complete this topic RSV Immunizations Under 20 Months Aged Out No longer eligible b ased on patient's age to complete this topic Medical Devices Implanted Type Area Lean Process Deployment Consultant Device Identifier Shelf Expiration Date Model / Serial / Lot Ray One Preloaded Iol Implanted:Qty: 1 on 01/31/2025 by Josefina Bowles MD at [facility] Right: Eye [id number] 09/28/2029 [id number] / / [id number] Rayone Preloaded Iol Implanted:Qty: 1 on 03/07/2025 by Josefina Bowles MD at [facility] Left: Eye 09/28/2029 [id number] / [id number] / [id number] Procedures Procedure Name Priority Date/Time Associated Diagnosis Comments REMV CATARACT EXTRACAP,INSERT LENS 03/07/2025 12:11 PM CDT h25.9 REMV CATARACT EXTRACAP,INSERT LENS 01/31/2025 8:54 AM CDT h25.9 from Last 3 Months Insurance MEDICARE [employer] Care Teams Installer Inspector Final Relationship Specialty Start Date End Date Luther Greenberg MD [address] [place] [address] PCP - General INTERNAL MEDICINE 01/31/25
== END 2025-03-28 09:43 | disposition home or self-care (01) ==
LOC: CHSLAB 09:46
PROVIDERS: PCP Internal Medicine; Visit Provider Internal Medicine
DX: J43.1 Panlobular emphysema (principal); E78.5 Hyperlipidemia, unspecified; E11.9 Type 2 diabetes mellitus without complications; I10 Essential (primary) hypertension; N39.0 Urinary tract infection, site not specified; M81.0 Age-related osteoporosis without current pathological fracture
CPT/HCPCS: 36415; 71046; 80053; 80061; 81001; 82306; 82550; 83036; 85027; 87086